=== PATIENT | male | born 1990 | race Hispanic/Latino ===

== ENCOUNTER 2019-06-08 13:07 | Emergency (ER) | payer BC, OTHER ==
[~2019-06-08] VITALS: Ht 172.7 cm; Wt 114.4 kg
[2019-06-08 13:26] VITALS: BP 156/89
--- NOTE | 2019-06-08 14:00 | ER.PDOC ---
General Chief Complaint: General Complaint Stated Complaint: HIGH BP TRAVEL OUT OF US: No Time seen by MD: 13:58 Source: patient Exam Limitations: no limitations History of Present Illness Initial Comments Elevated blood pressure at work yesterday. Severity: moderate Associated Symptoms: denies symptoms Past Medical History Medical History: diabetes Surgical History: knee Social History Smoking: quit less than 1 year Alcohol Use: heavy Drug Use: none Review of Systems Constitutional: no symptoms reported EENTM: no symptoms reported Respiratory: no symptoms reported Cardiovascular: no symptoms reported Gastrointestinal: no symptoms reported All Other Systems: Reviewed and Negative Physical Exam General Appearance: No Apparent Distress, WD/WN Neck: Non-Tender, Full Range of Motion, Supple, Normal Inspection Respiratory: chest non-tender, lungs clear, normal breath sounds, no respiratory distress CVS: reg rate & rhythm, no murmur, no gallop, pulses nml, nml capillary refill Gastrointestinal: Normal Bowel Sounds, No Organomegaly, No Pulsatile Mass, Non Tender Back: Normal Inspection Extremities: Normal Range of Motion 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 Course Sepsis Screening Results: Posi: POSITIVE SEPSIS RISK Vitals & review Data Vital Sign - Last 24 Hours 06/08/19 06/08/19 06/08/19 13:20 13:26 13:26 Temp 98.4 98.4 98.4 Pulse 93 93 93 Resp 18 18 18 B/P (MAP) 156/89 (111) Pulse Ox 99 99 O2 Delivery Room Air Room Air Sepsis Infection Criteria Pres: None O2 Sat by Pulse Oximetry: 99 Departure Time of Disposition: 13:59 Disposition: 01 HOME, SELF-CARE Impression: Primary Impression: Elevated blood pressure reading Condition: Stable Referrals: PCP,UNKNOWN (PCP) PRIMARY CARE PROVIDER Additional Instructions: Keep a blood pressure diary Okay to return to work F/U with A PCP in 1 week Duration or Time Spent with Pa: 20 mins ALONDRA LIVE MD Jun 08, 2019 14:00
[2019-06-08 14:08] VITALS: BP 138/60
== END 2019-06-08 14:09 | disposition home or self-care (01) ==
LOC: ER 13:07
DX: R03.0 Elevated blood-pressure reading, without diagnosis of hypertension (principal); E11.9 Type 2 diabetes mellitus without complications; Z87.891 Personal history of nicotine dependence
CPT/HCPCS: 99281

== ENCOUNTER → 2019-07-23 | Outpatient (CLI) | payer OTHER | END | disposition home or self-care (01) | LOC: LAB 18:47 | PROVIDERS: ATTEND Nurse Practitioner Adult Health | DX: N39.0 Urinary tract infection, site not specified (principal) | CPT/HCPCS: 87086 ==